=== PATIENT | male | born 1990 | race Caucasian/White ===

== ENCOUNTER 2018-03-24 11:15 | Observation (INO) | payer MEDICAID ==
[~2018-03-24] VITALS: Ht 182.9 cm; Wt 113.4 kg
[2018-03-24] MEDS ORDERED: CITA20 PO (11:57)
[2018-03-24] MEDS ORDERED: RISP3 PO (11:57)
[2018-03-24 12:03] LABS: BASOPHILS ABSOLUTE AUTO 0.08 K/mm3 (0.00-0.23); BASOPHILS PERCENT AUTO 1 % (0-2); EOSINOPHILS ABSOLUTE AUTO 0.04 K/mm3 (0.00-0.68); EOSINOPHILS PERCENT AUTO 0 % (0-6); IMMATURE GRAN ABSOLUTE AUTO 0.04 K/mm3 (0.00-0.10); IMMATURE GRAN PERCENT AUTO 0 % (0-1); LYMPHOCYTES ABSOLUTE AUTO 1.66 K/mm3 (0.84-5.20); LYMPHOCYTES PERCENT AUTO 15 % (21-46); MONOCYTES ABSOLUTE AUTO 1.02 K/mm3 (0.16-1.47); MONOCYTES PERCENT AUTO 9 % (4-13); Mean Corpuscular HGB Conc 34.7 g/dL (31.5-36.5); Mean Corpuscular Volume 84 fL (80-100); Mean Platelet Volume 10.9 fL (9.1-12.4); NEUTROPHILS ABSOLUTE AUTO 8.36 K/mm3 (1.96-9.15); NEUTROPHILS PERCENT AUTO 75 % (41-73); Platelet Count 404 K/mm3 (150-400); RDW Coefficient Variation 13.5 % (11.7-14.2); RDW Standard Deviation 40.7 fL (35.1-46.3); Red Blood Cell Count 5.87 M/mm3 (4.30-5.90)
[2018-03-24 12:06] LABS: Source, Urine Clean Catch
[2018-03-24 12:11] LABS: Appearance, Urine Clear (Clear); Blood, Urine Neg (Neg); Color, Urine Yellow (P-Yellow); Glucose Qualitative, Urine Neg (Neg); Ketones, Urine 4+ (Neg); Leukocyte Esterase, Urine 1+ (Neg); Nitrite, Urine Neg (Neg); Protein, Urine 2+ (Neg); Specific Gravity, Urine 1.015 (1.003-1.022); Urobilinogen, Urine 2+ (Normal)
[2018-03-24 12:17] LABS: Bilirubin, Urine 1+ (Neg)
[2018-03-24 12:18] LABS: Mucus Light (0-Heavy)
[2018-03-24 12:19] LABS: Calcium Oxalate Crystals Few /hpf
[2018-03-24 12:20] LABS: Bacteria Few /hpf; Red Blood Cells, Urine 0-2 /hpf (0-2); Squamous Epithelial Cells Not Seen /hpf (Few)
[2018-03-24 12:28] LABS: Ethanol (Alcohol), Blood, Med <3 mg/dL; Thyroxine (T4) 12.4 ug/dL (4.5-12.1)
[2018-03-24 12:30] LABS: U Amphetamine Screen Not Detected; U Barbituate Screen Not Detected; U Benzodiazapine Screen Not Detected; U Buprenorphine Screen Not Detected; U Cannabinoids Screen Not Detected; U Cocaine Screen Not Detected; U Methadone Screen Not Detected; U Methamphetamine Screen Not Detected; U Opiates Screen Not Detected; U Oxycodone Screen Not Detected; U Phencyclidine Screen Not Detected; U Propoxyphene Screen Not Detected
[2018-03-24 12:33] LABS: Acetaminophen, Random <2.0 ug/mL (10.0-30.0); Alanine Aminotransfer (ALT/SGP 29 U/L (12-78); Albumin, Blood 3.9 g/dL (3.4-5.0); Albumin/Globulin Ratio 0.9 (0.8-1.8); Alk Phos 121 U/L (50-136); Anion Gap 11 mmol/L (6-16); Aspartate Aminotrans (AST/SGOT 29 U/L (12-37); Bilirubin, Total 0.8 mg/dL (0.1-1.0); Blood Urea Nitrogen 16 mg/dL (8-24); Bun/Creatinine Ratio 15.5 (12.0-20.0); CO2, Blood 23 mmol/L (21-32); Calcium, Blood 9.6 mg/dL (8.5-10.1); Chloride, Blood 106 mmol/L (98-108); Creatinine, Blood 1.03 mg/dL (0.60-1.20); Globulin, Blood 4.3 g/dL (2.2-4.0); Glomerular Filtration Rate >60 (60-); Glucose, Blood 125 mg/dL (70-99); Potassium, Blood 3.5 mmol/L (3.5-5.5); Sodium, Blood 140 mmol/L (136-145); Total Protein, Blood 8.2 g/dL (6.4-8.2)
[2018-03-24] MEDS ORDERED: RISP4 PO (14:35)
== END 2018-03-24 14:40 | disposition home or self-care (01) ==
LOC: ER 11:15 → EOR 11:16
PROVIDERS: Emergency Medicine
DX: F20.9 Schizophrenia, unspecified (principal); Z79.899 Other long term (current) drug therapy
CPT/HCPCS: 80053; 81001; 84436; 84443; 85025; 99285; G0378; G0480; Q3014

== ENCOUNTER 2019-11-20 10:57 | Emergency (ER) | payer MEDICARE, OTHER ==
[~2019-11-20] VITALS: Ht 190.5 cm; Wt 158.8 kg
[~2019-11-20 10:57] MED LIST: CITA20 PO; RISP3 PO; RISP4 PO
== END 2019-11-20 11:15 | disposition left against medical advice (07) ==
LOC: ER 10:57
DX: Z53.21 Procedure and treatment not carried out due to patient leaving prior to being seen by health care provider (principal)

== ENCOUNTER 2019-11-20 11:48 | Emergency (ER) | payer MEDICARE, OTHER ==
[~2019-11-20] VITALS: Ht 182.9 cm; Wt 136.1 kg
== END 2019-11-20 19:00 | disposition home or self-care (01) ==
LOC: ER 11:48
DX: F20.9 Schizophrenia, unspecified (principal); Z59.0 Homelessness
CPT/HCPCS: 99283

== ENCOUNTER 2019-11-21 23:44 | Emergency (ER) | payer MEDICARE, OTHER ==
[~2019-11-21] VITALS: Ht 180.3 cm; Wt 117.9 kg
[2019-11-23] MEDS ORDERED: LEVFLO500 PO (14:41)
[2019-11-23] MEDS ORDERED: METR500 PO (14:42)
== END 2019-11-22 00:55 | disposition home or self-care (01) ==
LOC: ER 23:44
DX: F41.9 Anxiety disorder, unspecified (principal)
CPT/HCPCS: 99283

== ENCOUNTER 2019-11-22 01:11 | Emergency (ER) | payer MEDICARE, OTHER ==
[~2019-11-22] VITALS: Ht 195.6 cm; Wt 158.8 kg
[2019-11-23] MEDS ORDERED: LEVFLO500 PO (14:41)
[2019-11-23] MEDS ORDERED: METR500 PO (14:42)
== END 2019-11-22 02:14 | disposition home or self-care (01) ==
LOC: ER 01:11
DX: Z00.8 Encounter for other general examination (principal)
CPT/HCPCS: 99282; J7030

== ENCOUNTER 2021-04-04 15:50 | Emergency (ER) | payer MEDICARE, OTHER ==
[~2021-04-04] VITALS: Ht 182.9 cm; Wt 181.4 kg
[~2021-04-04 15:50] MED LIST changes: +LEVFLO500 PO; +METR500 PO; +Pedi-Dri 100,0060 GM TOP; +Zyprexa Zydis10 MG PO
[2021-04-04] MEDS ORDERED: ONDA4ODT MM (17:10)
[2021-04-04] MEDS ORDERED: Norco 5-325 Ta1 EACH PO (17:10)
== END 2021-04-04 18:15 | disposition home or self-care (01) ==
LOC: ER 15:50
DX: T22.10XA Burn of first degree of shoulder and upper limb, except wrist and hand, unspecified site, initial encounter (principal); T24.102A Burn of first degree of unspecified site of left lower limb, except ankle and foot, initial encounter; T24.101A Burn of first degree of unspecified site of right lower limb, except ankle and foot, initial encounter; T31.22 Burns involving 20-29% of body surface with 20-29% third degree burns; Z79.899 Other long term (current) drug therapy
CPT/HCPCS: 16030; 36415; 96374-59; 99283-25; J1170; J2405; J7030

== ENCOUNTER → 2022-09-03 | Outpatient (CLI) | payer MEDICARE, OTHER ==
[~2022-09-03] MED LIST changes: +Norco 5-325 Ta1 EACH PO; +ONDA4ODT MM
[2022-09-03 18:00] LABS: Microalb/Creat Ratio UR, Rand 16.932 mg/g (0.000-30.000); Microalbumin, Random Urine 42.5 mg/L (0.000-20.000)
== END | disposition home or self-care (01) ==
LOC: LAB 09:05 → LAB SHORT 09:05
PROVIDERS: Physician Assistant
DX: E11.65 Type 2 diabetes mellitus with hyperglycemia (principal)
CPT/HCPCS: 82043; 82570

== ENCOUNTER → 2023-07-12 | Outpatient (CLI) | payer MEDICARE, OTHER ==
[2023-07-12 15:55] LABS: Microalbumin, Random Urine 7.77 mg/L (0.000-20.000)
[2023-07-12 15:56] LABS: Microalb/Creat Ratio UR, Rand 6.585 mg/g (0.000-30.000)
== END | disposition home or self-care (01) ==
LOC: LAB SHORT 08:52 → LAB 08:52
PROVIDERS: Physician Assistant
DX: E11.65 Type 2 diabetes mellitus with hyperglycemia (principal)
CPT/HCPCS: 82043; 82570